=== PATIENT | female | born 1980 | race African-American/Black ===

== ENCOUNTER 2018-12-17 17:03 | Emergency (ER) | payer OTHER ==
[~2018-12-17] VITALS: Ht 165.1 cm; Wt 85.7 kg
[~2018-12-17 17:03] MED LIST: DIFLUCAN150 MG PO; DOXYCYCLINE 10100 MG PO; IBUPROFEN 800800 M1 PO; NAPROSYN500 MG PO; NOHOMEMEDICATIONS; PRENATAL VITAM1 EAC6 PO; TUCKS MEDICATE1 EAC1; ZPAK PO
[2018-12-17] MEDS ORDERED: MEDROLDOSEPACK PO (20:21)
[2018-12-17] MEDS ORDERED: ULTRAM 50MG TAB50 MG PO (20:21)
[2018-12-17 20:33] VITALS: BP 132/87
== END 2018-12-17 20:35 | disposition home or self-care (01) ==
LOC: ER 17:03
DX: M54.31 Sciatica, right side (principal)